=== PATIENT | male | born 1960 | race African-American/Black ===

== ENCOUNTER 2019-01-21 13:25 | Emergency (ER) | payer SELFPAY ==
[~2019-01-21] VITALS: Ht 167.6 cm; Wt 84.0 kg
[2019-01-21] MEDS ORDERED: GABA-531 PO (14:03)
[2019-01-21] MEDS ORDERED: AZIT250T12 PO (14:03)
[2019-01-21] MEDS ORDERED: ATOR10TA69 PO (14:03)
[2019-01-21] MEDS ORDERED: ALBU6.7H IH (14:03)
[2019-01-21] MEDS ORDERED: GLIP10TA10 PO (14:03)
[2019-01-21] MEDS ORDERED: D-ME473S8 PO (14:03)
[2019-01-21] MEDS ORDERED: IBUP-2029 PO (14:03)
[2019-01-21] MEDS ORDERED: METF-416 PO (14:03)
[2019-01-21] MEDS ORDERED: SODIUM CHLORIDE 0.9% 1,000 ML IV ONE (14:25)
[2019-01-21] MEDS ORDERED: ONDANSETRON HCL 4MG/2ML INJ IV STA (14:25)
[2019-01-21 15:14] LABS: BASOPHILS % 0.3 % (0.0-2.0); HEMATOCRIT. 40.5 % (42.0-52.0); HEMOGLOBIN. 13.2 g/dL (14.0-18.0); MEAN PLATELET VOLUME 9.4 fl (7.4-10.4); MONOCYTES % 8.1 % (2.0-8.0); NEUTROPHILS % 77.6 % (40.0-76.0); PLATELET 162 x1000/uL (130-400); RED BLOOD CELL COUNT 4.88 mill/uL (4.7-6.1); RED CELL DISTRIBUTION WIDTH 12.8 % (11.6-14.6)
[2019-01-21 15:19] LABS: CHLORIDE 103 mEq/L (98-107)
[2019-01-21 17:00] VITALS: BP 130/80
== END 2019-01-21 17:05 | disposition home or self-care (01) ==
LOC: EDBD 13:25 → ER 13:25
DX: R07.89 Other chest pain (principal); R06.02 Shortness of breath; R50.9 Fever, unspecified; E11.9 Type 2 diabetes mellitus without complications; E78.00 Pure hypercholesterolemia, unspecified; Z79.899 Other long term (current) drug therapy
CPT/HCPCS: 36415; 71045; 80053; 82962; 84484; 85025; 87804; 93005; 96374; 99284; J2405; J7030

== ENCOUNTER 2019-09-01 15:57 | Emergency (ER) | payer OTHER ==
[~2019-09-01 15:57] MED LIST: ALBU6.7H11 IH; ATOR10TA69 PO; AZIT250T12 PO; D-ME473S8 PO; GABA-531 PO; GLIP10TA10 PO; IBUP-2029 PO; METF-416 PO
[2019-09-01 19:40] LABS: HEMATOCRIT. 48.6 % (42.0-52.0); HEMOGLOBIN. 16.7 g/dL (14.0-18.0); MEAN CORPUSCULAR HEMOGLOBIN 27.9 pg (28.0-32.0); MEAN CORPUSCULAR VOLUME 81.4 fL (80.0-94.0); MEAN PLATELET VOLUME 9.3 fl (7.4-10.4); PLATELET 137 x1000/uL (130-400); RED BLOOD CELL COUNT 5.97 mill/uL (4.7-6.1); RED CELL DISTRIBUTION WIDTH 12.9 % (11.6-14.6)
[2019-09-01 19:47] LABS: CLARITY URINE CLEAR (CLEAR); COLOR URINE YELLOW (YELLOW); KETONES URINE 2+ (NEGATIVE); LEUKOCYTE ESTERASE URINE NEGATIVE (NEGATIVE); NITRITE URINE NEGATIVE (NEGATIVE); OCCULT BLOOD URINE 2+ (NEGATIVE); PROTEIN URINE 3+ (NEGATIVE); SPECIFIC GRAVITY URINE 1.027 (1.005-1.030)
[2019-09-01 19:47] LABS: CHLORIDE 93 mEq/L (98-107)
[2019-09-01 19:50] LABS: INR 0.9; PROTHROMBIN TIME 10.3 sec (9.6-11.0)
[2019-09-01 20:50] LABS: PLATELET ESTIMATE NORMAL
[2019-09-01] MEDS ORDERED: IBUPROFEN 600MG TABLET PO ONE (21:00)
[2019-09-01 22:48] VITALS: BP 126/62
== END 2019-09-01 22:53 | disposition home or self-care (01) ==
LOC: ER 15:57
DX: U07.1 COVID-19 (principal); R07.89 Other chest pain; E11.9 Type 2 diabetes mellitus without complications; R00.0 Tachycardia, unspecified; Z79.84 Long term (current) use of oral hypoglycemic drugs; Z79.899 Other long term (current) drug therapy
CPT/HCPCS: 36415; 71045; 80053; 81003; 83880; 84484; 85025; 85610; 93005; 99285; U0003